=== PATIENT | female | born 1955 | race Caucasian/White ===

== ENCOUNTER 2017-08-08 07:30 | Inpatient (IN) | payer OTHER ==
[~2017-08-08 07:30] MED LIST: Bisacodyl 5 MG Tab PO PRN; Cyclobenzaprine 10 MG Tab PO PRN; Docusate Sodium 100 MG Cap PO PRN; Lidocaine 1%/Sod Bicarbonate in NS 8.4% 1 ML Syringe IV PRN; Magnesium Hydroxide 400 MG/5 ML Susp 30 ML Cup PO PRN; Morphine 2 MG/ML Syringe IVPUSH PRN; Naloxone 0.4 MG/ML SDV IVPUSH PRN; Ondansetron 4 MG/2 ML SDV IVPUSH PRN; Sennosides 8.6 MG Tab PO PRN; Sodium Chloride 0.9% 10 ML Syringe FLUSH PRN
[2017-08-08] MEDS: Lactated Ringers 1,000 ML IV SCH ×2 (10:12→15:19)
--- NOTE | 2017-08-08 10:12 | PCM.PREANE ---
Preanesthetic Assessment - Anesthesia/Transfusion/Family Hx Anesthesia History: Prior Anesthesia Reaction Type of Anesthesia Reaction: Excessive Nausea/Vomiting Family History of Anesthesia Reaction: No Transfusion History: No Prior Transfusion(s) Intubation History: Unknown - Review of Systems General: No Symptoms Pulmonary: No Symptoms (History of ROBERTO with cpap use noted at night.) Cardiovascular: No Symptoms (History of HTN) Gastrointestinal: No Symptoms, Constipation Neurological: No Symptoms Other: Reports: None - Physical Assessment NPO Status Date: 08/08/17 NPO Status Time: 00:00 Pulse: 66 O2 Sat by Pulse Oximetry: 96 Respiratory Rate: 16 Blood Pressure: 143/71 Temperature: 36.9 C Height: 1.6 m Weight: 89.358 kg ASA Class: 2 Mental Status: Alert & Oriented x3 Airway Class: Mallampati = 2 Dentition: Reports: Normal Dentition, Caries Thyro-Mental Finger Breadths: 3 Mouth Opening Finger Breadths: 3 ROM/Head Extension: Full Lungs: Clear to Auscultation, Normal Respiratory Effort Cardiovascular: Regular Rate, Regular Rhythm, No Murmurs - Lab Values: Laboratory Last Values MRSA (PCR) Negative 07/26/17 09:43 Lab values reviewed and noted and within acceptable ranges to proceed with scheduled procedure. - Imaging/EKG Impressions: EKG: NSR, borderline left axis deviation, probable anteroseptal infarct, old. CXR: unremarkable. - Allergies Allergies/Adverse Reactions: Allergies Allergy/AdvReac Type Severity Reaction Status Date / Time latex Allergy Rash Verified 08/08/17 10:38 - Anesthesia Plan Pre-Op Medication Ordered: None - Acknowledgements Anesthesia Type Planned: Spinal Pt an Appropriate Candidate for the Planned Anesthesia: Yes Alternatives and Risks of Anesthesia Discussed w Pt/Guardian: Yes Pt/Guardian Understands and Agrees with Anesthesia Plan: Yes PreAnesthesia Questionnaire HEENT History: Reports: Impaired Vision, Other (See Below) Other HEENT History: glasses Cardiovascular History: Reports: High Cholesterol, Hypertension Respiratory History: Reports: Sleep Apnea Gastrointestinal History: Reports: None Genitourinary History: Reports: Other (See Below) Other Genitourinary History: overactive bladder 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 Musculoskeletal History: Reports: Osteoarthritis, Other (See Below) Other Musculoskeletal History: padron's cyst right knee Neurological History: Reports: None Psychiatric History: Reports: Anxiety, Depression Endocrine/Metabolic History: Reports: None Hematologic History: Reports: None Immunologic History: Reports: None Oncologic (Cancer) History: Reports: None Dermatologic History: Reports: None - Past Surgical History Head Surgeries/Procedures: Reports: None Cardiovascular Surgical History: Reports: None Respiratory Surgical History: Reports: None GI Surgical History: Reports: None Female Surgical History: Reports: Hysterectomy, Tubal Ligation Male Surgical History: Reports: None Endocrine Surgical History: Reports: None Neurological Surgical History: Reports: None Musculoskeletal Surgical History: Reports: Carpal Tunnel Oncologic Surgical History: Reports: None Dermatological Surgical History: Reports: None - SUBSTANCE USE Smoking Status *Q: Never Smoker Recreational Drug Use History: No - HOME MEDS Home Medications: Home Meds Biotin 5 mg PO BID 08/05/17 [History] Furosemide [Lasix] 20 mg PO BID 08/05/17 [History] L Acidophil/B Lactis/B Longum [Florajen3] 460 mg PO DAILY 08/05/17 [History] Lisinopril 5 mg PO DAILY 08/05/17 [History] Meloxicam [Mobic] 7.5 mg PO DAILY 08/05/17 [History] Replenex 1 tab PO BID 08/05/17 [History] - CURRENT (IN HOUSE) MEDS Current Meds: Current Medications Aspirin (Ecotrin) 325 mg PO BID ALBINA Bisacodyl (Dulcolax) 5 mg PO DAILY PRN PRN Reason: Constipation Morphine Sulfate 8 mg/Epinephrine HCl 0.3 mg/Cefuroxime Sodium 750 mg/Ketorolac Tromethamine 30 mg/Sodium Chloride 27.9 ml 0 mg .XX ONETIME ONE Stop: 08/08/17 11:31 Cyclobenzaprine HCl (Flexeril) 10 mg PO TID PRN PRN Reason: Spasms Docusate Sodium (Colace) 100 mg PO BID PRN PRN Reason: Constipation Famotidine (Pepcid) 20 mg PO Q12H ALBINA Lactated Ringer's (Ringers, Lactated) 1,000 mls @ 125 mls/hr IV ASDIRECTED ALBINA Cefazolin Sodium/Dextrose 2 gm (/ Premix) 50 mls @ 100 mls/hr IV Q8H ALBINA Stop: 08/08/17 23:44 Lidocaine/Sodium Bicarbonate (Buffered Lidocaine 1% In Ns 8.4%) 0.25 ml IV ONETIME PRN PRN Reason: Prior to IV Start Stop: 08/08/17 18:00 Magnesium Hydroxide (Milk Of Magnesia) 30 ml PO BID PRN PRN Reason: Constipation Morphine Sulfate (Morphine) 2 mg IVPUSH Q2H PRN PRN Reason: Breakthrough Pain Naloxone HCl (Narcan) 0.1 mg IVPUSH Q5M PRN PRN Reason: Oversedation Ondansetron HCl (Zofran) 4 mg IVPUSH Q6H PRN PRN Reason: Nausea/Vomiting Oxycodone/Acetaminophen (Percocet 325-5 Mg) 1 - 2 tab PO Q4H PRN PRN Reason: Pain Senna (Senna) 8.6 mg PO BID PRN PRN Reason: Constipation Sodium Chloride (Saline Flush) 10 ml FLUSH ASDIRECTED PRN PRN Reason: Keep Vein Open Discontinued Medications Bupivacaine HCl (Marcaine 0.25%) Confirm Administered Dose 30 ml .ROUTE .STK- MED ONE Stop: 08/08/17 09:44 Cefazolin Sodium (Ancef) Confirm Administered Dose 2 gm .ROUTE .STK-MED ONE Stop: 08/08/17 09:44 Iodine (Iodine 2% Mild Tincture) Confirm Administered Dose 30 ml .ROUTE .STK- MED ONE Stop: 08/08/17 09:44 Tranexamic Acid (Cyklokapron) Confirm Administered Dose 1,000 mg .ROUTE .STK- MED ONE Stop: 08/08/17 09:44 Vancomycin HCl (Vancomycin) Confirm Administered Dose 1 gm .ROUTE .STK-MED ONE Stop: 08/08/17 09:44
[2017-08-08] MEDS ORDERED: Scopolamine 1.5 MG Transdermal Patch TRDERM ONE (10:15)
[2017-08-08] MEDS ORDERED: Phenylephrine 1% 10 MG/ML SDV ONE ×2 (10:33→11:36)
[2017-08-08] MEDS ORDERED: Lactated Ringers 1,000 ML ONE ×3 (10:59→12:09)
[2017-08-08] MEDS ORDERED: Midazolam 1 MG/ML 2 ML SDV ONE (11:23)
[2017-08-08] MEDS ORDERED: Lidocaine 1% 8 ML ONE (11:24)
[2017-08-08] MEDS ORDERED: Ondansetron 4 MG/2 ML SDV ONE (11:24)
[2017-08-08] MEDS ORDERED: fentaNYL 100 MCG/2 ML SDV ONE (11:24)
[2017-08-08] MEDS ORDERED: Dexamethasone 4 MG/ML 5 ML MDV ONE (11:24)
[2017-08-08] MEDS ORDERED: diphenhydrAMINE 50 MG/ML SDV ONE (11:24)
[2017-08-08] MEDS ORDERED: Propofol 200 MG/20 ML SDV ONE ×3 (11:24→13:09)
[2017-08-08] MEDS ORDERED: Morphine PF 10 MG/10 ML SDV ONE (11:31)
[2017-08-08] MEDS ORDERED: Ketamine 500 mg/10 ML MDV ONE (11:34)
[2017-08-08] MEDS ORDERED: ePHEDrine 50 MG/ML SDV ONE (11:36)
[2017-08-08] MEDS ORDERED: fentaNYL 100 MCG/2 ML SDV IVPUSH PRN (12:07)
[2017-08-08] MEDS ORDERED: Midazolam 1 MG/ML 2 ML SDV IVPUSH PRN (12:07)
[2017-08-08] MEDS ORDERED: Ondansetron 4 MG/2 ML SDV IVPUSH PRN (12:07)
[2017-08-08] MEDS ORDERED: ePHEDrine 50 MG/ML SDV IVPUSH PRN (12:07)
[2017-08-08] MEDS ORDERED: Phenylephrine 1 MG in Sodium Chloride 0.9% 10 ML IV SCH (12:15)
[2017-08-08] MEDS: Bupivacaine 0.25% 30 ML SDV ONE ×2 (12:27→13:29)
[2017-08-08] MEDS: ceFAZolin 1 GM Vial ONE ×2 (12:28→13:23)
[2017-08-08] MEDS: Iodine/Sodium Iodide 2% Tincture 30 ML Bottle ONE ×2 (12:29→13:21)
[2017-08-08] MEDS: Morphine 8 MG, EPINEPHrine 0.3 MG, Cefuroxime 750 MG, Ketorolac 30 MG, Sodium Chloride ... ONE ×15 (12:30→20:17)
[2017-08-08] MEDS: Vancomycin 1 GM SDV ONE ×2 (12:31→13:30)
[2017-08-08] MEDS ORDERED: ceFAZolin 1 GM Vial ONE (13:30)
--- NOTE | 2017-08-08 14:11 | PCM.POSTAN ---
POST ANESTHESIA ASSESSMENT - MENTAL STATUS Mental Status: Somnolent - VITAL SIGNS Pulse Rate: 62 SaO2: 91 Resp Rate: 14 Blood Pressure: 90/51 Temperature: 36.0 C - RESPIRATORY Respiratory Status: Respiratory Rate WNL, Airway Patent, O2 Saturation Stable - CARDIOVASCULAR CV Status: Pulse Rate WNL, Blood Pressure Stable, Low Blood Pressure - GASTROINTESTINAL GI Status: No Symptoms - PAIN Pain Score: 0 - POST OP HYDRATION Hydration Status: Adequate & Stable
--- NOTE | 2017-08-08 15:40 | CR ---
Right hip: AP and lateral views of the right hip were obtained as well as AP view of the pelvis. Right hip prosthesis is seen. Components are aligned. Mild joint space narrowing seen within the left hip. Underlying bony structures are intact. Soft tissue air noted around the right hip compatible with the procedure. Impression: 1. Mild joint space narrowing within the left hip. 2. Satisfactory postoperative radiographic appearance of recently placed right hip prosthesis. Diagnostic code #2
[2017-08-08] MEDS: ceFAZolin 2 GM in Premix Bag 1 BAG IV SCH (18:51)
--- NOTE | 2017-08-08 20:01 | PCM.CONS ---
H&P History of Present Illness - General Date of Service: 08/08/17 Admit Problem/Dx: Admission Diagnosis/Problem Admission Diagnosis/Problem Osteoarthritis of hip Source of Information: Patient, Old Records, Provider, RN, Other (surgical notes ) History Limitations: Reports: No Limitations - History of Present Illness Initial Comments - Free Text/Narative: Natalia Oliveira is a 62 yo female patient of Dr. Mcduffie who is post-operative day 0 of right total hip arthroplasty. Hospital medicine was consulted for post- operative medical care. At this time she is resting comfortably. Pain is controlled. she denies any chest pain, shortness of breath, palpitations, nausea , or vomiting. She carries a history of: HLD, HTN, ROBERTO, overactive bladder, osteoarthritis, anxiety,and depression. She was never a smoker She is a full code. Her primary care provider is Dr. Chu at [facility] in [place] . Right Hip Pain Score (Numeric/FACES): 1 - Related Data Allergies/Adverse Reactions: Allergies Allergy/AdvReac Type Severity Reaction Status Date / Time latex Allergy Rash Verified 08/08/17 10:38 Home Medications: Home Meds Biotin 5 mg PO BID 08/05/17 [History] Furosemide [Lasix] 20 mg PO BID 08/05/17 [History] L Acidophil/B Lactis/B Longum [Florajen3] 460 mg PO DAILY 08/05/17 [History] Lisinopril 5 mg PO DAILY 08/05/17 [History] Meloxicam [Mobic] 7.5 mg PO DAILY 08/05/17 [History] Replenex 1 tab PO BID 08/05/17 [History] Past Medical History HEENT History: Reports: Impaired Vision, Other (See Below) Other HEENT History: glasses Cardiovascular History: Reports: Hypertension Respiratory History: Reports: Sleep Apnea Gastrointestinal History: Reports: None Genitourinary History: Reports: Other (See Below) Other Genitourinary History: overactive bladder 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 noted a couple of days ago a pea sized lump on left breast at approx. 10 o'clock position, is moveable and nontender. Will note further. Musculoskeletal History: Reports: Osteoarthritis, Other (See Below) Other Musculoskeletal History: padron's cyst right knee Neurological History: Reports: Concussion Other Neuro History: states had a concussion 4-5 years ago Psychiatric History: Reports: Anxiety, Depression Endocrine/Metabolic History: Reports: None Hematologic History: Reports: None Immunologic History: Reports: None Oncologic (Cancer) History: Reports: None Dermatologic History: Reports: None - Past Surgical History Head Surgeries/Procedures: Reports: None Cardiovascular Surgical History: Reports: None Respiratory Surgical History: Reports: None GI Surgical History: Reports: None Female Surgical History: Reports: Hysterectomy, Tubal Ligation Endocrine Surgical History: Reports: None Neurological Surgical History: Reports: None Musculoskeletal Surgical History: Reports: Carpal Tunnel, Other (See Below) Other Musculoskeletal Surgeries/Procedures:: and trigger finger on each thumb Oncologic Surgical History: Reports: None Dermatological Surgical History: Reports: None Social & Family History - Family History Cardiac: Reports: Heart Failure : Reports: UTI, Recurrent OBGYN: Reports: None Musculoskeletal: Reports: Arthritis Neurological: Reports: Dementia, Parkinson's Endocrine/Metabolic: Reports: None Oncologic: Reports: Breast - Tobacco Use Smoking Status *Q: Never Smoker Second Hand Smoke Exposure: Yes - Caffeine Use Caffeine Use: Reports: Coffee Caffeine Use Comment: 4 cups of coffee today - Recreational Drug Use Recreational Drug Use: No Drug Use in Last 12 Months: No H&P Review of Systems - Review of Systems: Review Of Systems: See Below General: Reports: No Symptoms HEENT: Reports: No Symptoms Pulmonary: Reports: No Symptoms Cardiovascular: Reports: No Symptoms Gastrointestinal: Reports: No Symptoms Genitourinary: Reports: No Symptoms Musculoskeletal: Reports: Joint Pain (right hip ). Denies: Neck Pain, Shoulder Pain, Arm Pain, Back Pain, Hand Pain, Leg Pain, Foot Pain, Joint Swelling, Muscle Pain, Muscle Stiffness Skin: Reports: No Symptoms Psychiatric: Reports: No Symptoms Neurological: Reports: No Symptoms Hematologic/Lymphatic: Reports: No Symptoms Immunologic: Reports: No Symptoms Review of Systems Comment:: Patient reports pain is very well controlled. She has no concerns. Exam - Exam Exam: See Below - Vital Signs Vital Signs: Last Vital Signs Temp 96.6 F 08/08/17 16:21 Pulse 84 08/08/17 19:17 Resp 14 08/08/17 16:21 BP 107/53 L 08/08/17 19:17 Pulse Ox 99 08/08/17 19:17 Weight: 197 lb - Exam Quality Assessment: Supplemental Oxygen, Urinary Catheter, DVT Prophylaxis General: Alert, Oriented, Cooperative HEENT: Conjunctiva Clear, EACs Clear, EOMI, Hearing Intact, Mucosa Moist & [place] , Nares Patent, Normal Nasal Septum, Posterior Pharynx Clear, Pupils Equal, Pupils Reactive Neck: Supple, Trachea Midline. No: JVD Lungs: Clear to Auscultation, Normal Respiratory Effort Cardiovascular: Regular Rate, Regular Rhythm GI/Abdominal Exam: Normal Bowel Sounds, Soft, Non-Tender, No Organomegaly, No Distention, No Abnormal Bruit, No Mass, Pelvis Stable (Female) Exam: Deferred Rectal (Female) Exam: Deferred Back Exam: Normal Inspection, Full Range of Motion Extremities: No Pedal Edema, Normal Capillary Refill, Other (Right leg has Edin bandage in place. Bandage is intact and dry.) Peripheral Pulses: 2+: Radial (L), Radial (R), Posterior Tibial (L), Posterior Tibial (R), Dorsalis Pedis (L), Dorsalis Pedis (R) Skin: Warm, Dry, Intact Neurological: Cranial Nerves Intact (grossly) Neuro Extensive - Mental Status: Alert, Oriented x3, Normal Mood/Affect, Normal Cognition, Memory Intact Neuro Extensive - Motor, Sensory, Reflexes: CN II-XII Intact (grossly) Psychiatric: Alert, Normal Affect, Normal Mood Physical Exam Comments:: Vital signs of been stable. No concerns. Patient does have a history of sleep apnea and she brought her CPAP machine. She was instructed to wear it tonight. - Patient Data Lab Results Last 24 hrs: Laboratory Results - last 24 hr 08/08/17 Range/Units 09:45 Blood Type O POSITIVE Gel Antibody Screen Negative Consult PN Assessment/Plan POD#: 0 Procedures: Procedures BREATHING CAPACITY TEST (06/03/17) CO/MEMBANE DIFFUSE CAPACITY (06/03/17) DRAIN/INJ JOINT/BURSA W/O US (03/18/17) DXA BONE DENSITY AXIAL (08/02/17) POLYSOM 6/> YRS 4/> TOBI (03/10/17) POLYSOM 6/>YRS CPAP 4/> PARM (06/08/17) (1) S/P total hip arthroplasty SNOMED Code(s): 972562514941 Code(s): Z96.649 - PRESENCE OF UNSPECIFIED ARTIFICIAL HIP JOINT Priority: High Current Visit: Yes Qualifiers: Laterality: right Qualified Code(s): Z96.641 - Presence of right artificial hip joint (2) Osteoarthritis SNOMED Code(s): 870104786 Code(s): M19.90 - UNSPECIFIED OSTEOARTHRITIS, UNSPECIFIED SITE Priority: High Current Visit: Yes Qualifiers: Osteoarthritis location: hip Osteoarthritis type: primary Laterality: right Qualified Code(s): M16.11 - Unilateral primary osteoarthritis, right hip (3) HLD (hyperlipidemia) SNOMED Code(s): 57760886 Code(s): E78.5 - HYPERLIPIDEMIA, UNSPECIFIED Priority: Low Current Visit : No Qualifiers: Hyperlipidemia type: unspecified Qualified Code(s): E78.5 - Hyperlipidemia , unspecified (4) HTN (hypertension) SNOMED Code(s): 40327199 Code(s): I10 - ESSENTIAL (PRIMARY) HYPERTENSION Priority: Low Current Visit: Yes Qualifiers: Hypertension type: unspecified Qualified Code(s): I10 - Essential (primary ) hypertension (5) Sleep apnea SNOMED Code(s): 29588277 Code(s): G47.30 - SLEEP APNEA, UNSPECIFIED Priority: Medium Current Visit : Yes Qualifiers: Sleep apnea type: unspecified type Qualified Code(s): G47.30 - Sleep apnea , unspecified (6) Overactive bladder SNOMED Code(s): 426325134 Code(s): N32.81 - OVERACTIVE BLADDER Priority: Low Current Visit: No (7) Anxiety SNOMED Code(s): 36105973 Code(s): F41.9 - ANXIETY DISORDER, UNSPECIFIED Priority: Low Current Visit: No (8) Depression SNOMED Code(s): 65417213 Code(s): F32.9 - MAJOR DEPRESSIVE DISORDER, SINGLE EPISODE, UNSPECIFIED Priority: Low Current Visit: No Qualifiers: Depression Type: unspecified Qualified Code(s): F32.9 - Major depressive disorder, single episode, unspecified Problem List Initiated/Reviewed/Updated: Yes Plan: I/P: Acute: S/P Right total hip arthroplasty - postoperative day 0 -DVT prophylaxis and pain management per primary care team -PT/OT -IS/RT -Monitor oxygen saturation -Titrate oxygen as needed -Vital signs stable -50% weight bearing per Brigitte Laumb, PA-C. Osteoarthritis of right hip -Pain management per primary care team Chronic: HLD HTN - stable Sleep apnea - Brought CPAP to wear Overactive bladder Anxiety - stable Depression - stable Plan: SW/CM for discharge planning GI prophylaxis Home medications as indicated Other orders as listed above Routine AM labs She is a full code. Her PCP is Dr. Chu at [facility] here in [place]. Thank you for allowing us to participate in the care of this patient!! Requesting Provider: Dr. Mcduffie Date Consult Requested: 08/08/17 Reason for Consult: Post-operative medical managment Patient History Reviewed: Yes Admission H&P Reviewed: Yes
[2017-08-08] MEDS: Famotidine 20 MG Tab PO SCH (20:59)
[2017-08-08] MEDS ORDERED: Furosemide 20 MG Tab PO SCH (21:00)
[2017-08-08] MEDS: Acetaminophen/oxyCODONE 325-5 MG Tab PO PRN (21:00)
[2017-08-09] MEDS: ceFAZolin 2 GM in Premix Bag 1 BAG IV SCH ×2 (03:35→11:08)
[2017-08-09] MEDS: Acetaminophen/oxyCODONE 325-5 MG Tab PO PRN ×3 (06:54→16:19)
[2017-08-09] MEDS: Furosemide 20 MG Tab PO SCH ×2 (06:54→15:53)
[2017-08-09] MEDS ORDERED: Aspirin 325 MG Tab.EC PO SCH (09:00)
[2017-08-09] MEDS ORDERED: Lisinopril 5 MG Tab PO SCH (09:00)
[2017-08-09] MEDS ORDERED: Saccharomyces Boulardii (Probiotic) 250 MG Cap PO SCH ×2 (09:00→09:30)
[2017-08-09] MEDS: Famotidine 20 MG Tab PO SCH (09:26)
--- NOTE | 2017-08-09 10:27 | PCM48HPAN ---
Post Anesthesia Note - EVALUATION WITHIN 48HRS OF ANESTHETIC Vital Signs in Normal Range: Yes Patient Participated in Evaluation: Yes Respiratory Function Stable: Yes Airway Patent: Yes Cardiovascular Function Stable: Yes Hydration Status Stable: Yes Pain Control Satisfactory: Yes Nausea and Vomiting Control Satisfactory: Yes Mental Status Recovered: Yes
--- NOTE | 2017-08-09 11:01 | PCM.CONSN ---
- General Info Date of Service: 08/09/17 Admission Dx/Problem (Free Text): Admission Diagnosis/Problem Admission Diagnosis/Problem Osteoarthritis of hip POD #[address] Mcduffie Patient is 50% wt bearing status due to osteoporosis. Working with PT, doing well. No nausea, tolerating meals. Voiding. VSS. Hgb 9.8. Other labs stable. Functional Status: Reports: Pain Controlled, Tolerating Diet, Ambulating, Urinating, Incentive Spirometry. Denies: New Symptoms - Review of Systems General: Reports: No Symptoms HEENT: Reports: No Symptoms Pulmonary: Reports: No Symptoms Cardiovascular: Reports: No Symptoms Gastrointestinal: Reports: No Symptoms Genitourinary: Reports: No Symptoms Musculoskeletal: Reports: Leg Pain Skin: Reports: No Symptoms Neurological: Reports: No Symptoms Psychiatric: Reports: No Symptoms - Patient Data Vitals - Most Recent: Last Vital Signs Temp 98.6 F 08/09/17 08:22 Pulse 62 08/09/17 08:22 Resp 19 08/09/17 08:22 BP 118/53 L 08/09/17 09:25 Pulse Ox 88 L 08/09/17 10:24 Weight - Most Recent: 197 lb 0.012 oz I&O - Last 24 Hours: Intake & Output 08/08/17 08/09/17 08/09/17 22:59 06:59 14:59 Intake Total 570 850 Output Total 75 1100 Balance 495 -250 Lab Results Last 24 Hours: Laboratory Results - last 24 hr 08/09/17 08/09/17 Range/Units 06:25 06:25 WBC 8.04 (3.98-10.04) K/mm3 RBC 3.56 L (3.98-5.22) M/mm3 Hgb 9.8 L (11.2-15.7) gm/L Hct 31.2 L (34.1-44.9) % MCV 87.6 (79.4-94.8) fl MCH 27.5 (25.6-32.2) pg MCHC 31.4 L (32.2-35.5) g/dl RDW Std Deviation 44.1 (36.4-46.3) fL Plt Count 251 (182-369) K/mm3 MPV 8.5 L (9.4-12.3) fl Sodium 145 (136-145) mEq/L Potassium 3.9 (3.5-5.1) mEq/L Chloride 108 H (98-107) mEq/L Carbon Dioxide 29 (21-32) mEq/L Anion Gap 11.9 (5-15) BUN 17 (7-18) mg/dL Creatinine 0.7 (0.55-1.02) mg/dL Est Cr Clr Drug Dosing 68.93 mL/min Estimated GFR (MDRD) > 60 (>60) mL/min BUN/Creatinine Ratio 24.3 H (14-18) Glucose 106 (80-115) mg/dL Calcium 8.7 (8.5-10.1) mg/dL Total Bilirubin 0.3 (0.2-1.0) mg/dL AST 18 (15-37) U/L ALT 18 (14-59) U/L Alkaline Phosphatase 68 (46-116) U/L Total Protein 5.6 L (6.4-8.2) g/dl Albumin 2.6 L (3.4-5.0) g/dl Globulin 3.0 gm/dL Albumin/Globulin Ratio 0.9 L (1-2) Med Orders - Current: Current Medications Aspirin (Ecotrin) 325 mg PO BID [facility] Last Admin: 08/09/17 09:25 Dose: 325 mg Bisacodyl (Dulcolax) 5 mg PO DAILY PRN PRN Reason: Constipation Cyclobenzaprine HCl (Flexeril) 10 mg PO TID PRN PRN Reason: Spasms Last Admin: 08/09/17 06:54 Dose: 10 mg Docusate Sodium (Colace) 100 mg PO BID PRN PRN Reason: Constipation Famotidine (Pepcid) 20 mg PO Q12H [facility] Last Admin: 08/09/17 09:26 Dose: 20 mg Furosemide (Lasix) 20 mg PO BIDDIURETIC [facility] Last Admin: 08/09/17 06:54 Dose: 20 mg Cefazolin Sodium/Dextrose 2 gm (/ Premix) 50 mls @ 100 mls/hr IV Q8H [facility] Stop: 08/09/17 11:29 Last Admin: 08/09/17 03:35 Dose: 100 mls/hr Lisinopril (Prinivil) 5 mg PO DAILY [facility] Last Admin: 08/09/17 09:25 Dose: 5 mg Magnesium Hydroxide (Milk Of Magnesia) 30 ml PO BID PRN PRN Reason: Constipation Miscellaneous Information (Remove Patch) 0 ea TRDERM ONETIME ONE Stop: 08/11/17 10:01 Morphine Sulfate (Morphine) 2 mg IVPUSH Q2H PRN PRN Reason: Breakthrough Pain Naloxone HCl (Narcan) 0.1 mg IVPUSH Q5M PRN PRN Reason: Oversedation Ondansetron HCl (Zofran) 4 mg IVPUSH Q6H PRN PRN Reason: Nausea/Vomiting Oxycodone/Acetaminophen (Percocet 325-5 Mg) 1 - 2 tab PO Q4H PRN PRN Reason: Pain Last Admin: 08/09/17 06:54 Dose: 2 tab Biotin 5 Mg 0 each PO BID [facility] Saccharomyces Boulardii (Florastor) 250 mg PO DAILY [facility] Last Admin: 08/09/17 09:27 Dose: 250 mg Senna (Senna) 8.6 mg PO BID PRN PRN Reason: Constipation Sodium Chloride (Saline Flush) 10 ml FLUSH ASDIRECTED PRN PRN Reason: Keep Vein Open Discontinued Medications Bupivacaine HCl (Marcaine 0.25%) Confirm Administered Dose 30 ml .ROUTE .STK- MED ONE Stop: 08/08/17 09:44 Last Admin: 08/08/17 13:29 Dose: 30 ml Cefazolin Sodium (Ancef) Confirm Administered Dose 2 gm .ROUTE .STK-MED ONE Stop: 08/08/17 09:44 Last Admin: 08/08/17 13:23 Dose: 2 gm Cefazolin Sodium (Ancef) Confirm Administered Dose 2 gm .ROUTE .STK-MED ONE Stop: 08/08/17 13:31 Morphine Sulfate 8 mg/Epinephrine HCl 0.3 mg/Cefuroxime Sodium 750 mg/Ketorolac Tromethamine 30 mg/Sodium Chloride 27.9 ml 0 mg .XX ONETIME ONE Stop: 08/08/17 11:31 Last Admin: 08/08/17 20:17 Dose: Not Given Dexamethasone (Dexamethasone) Confirm Administered Dose 20 mg .ROUTE .STK-MED ONE Stop: 08/08/17 11:25 Diphenhydramine HCl (Benadryl) Confirm Administered Dose 50 mg .ROUTE .STK-MED ONE Stop: 08/08/17 11:25 Ephedrine Sulfate (Ephedrine Sulfate) Confirm Administered Dose 50 mg .ROUTE .STK-MED ONE Stop: 08/08/17 11:37 Ephedrine Sulfate (Ephedrine Sulfate) 5 mg IVPUSH ASDIRECTED PRN PRN Reason: Hypotension Stop: 08/08/17 14:30 Fentanyl (Sublimaze) Confirm Administered Dose 100 mcg .ROUTE .STK-MED ONE Stop: 08/08/17 11:25 Fentanyl (Sublimaze) 50 mcg IVPUSH Q5M PRN PRN Reason: Pain Stop: 08/08/17 14:30 Furosemide (Lasix) 20 mg PO BID [facility] Last Admin: 08/08/17 20:59 Dose: 20 mg Glycopyrrolate () Confirm Administered Dose 1 mg .ROUTE .STK-MED ONE Stop: 08/08/17 12:34 Lactated Ringer's (Ringers, Lactated) 1,000 mls @ 125 mls/hr IV ASDIRECTED [facility] Last Admin: 08/08/17 15:19 Dose: 125 mls/hr Lactated Ringer's (Ringers, Lactated) Confirm Administered Dose 1,000 mls @ as directed .ROUTE .ST-MED ONE Stop: 08/08/17 11:00 Lidocaine HCl (Xylocaine-Mpf 1%) Confirm Administered Dose 8 mls @ as directed .ROUTE .ST-MED ONE Stop: 08/08/17 11:25 Lactated Ringer's (Ringers, Lactated) Confirm Administered Dose 1,000 mls @ as directed .ROUTE .ST-MED ONE Stop: 08/08/17 11:56 Lactated Ringer's (Ringers, Lactated) Confirm Administered Dose 1,000 mls @ as directed .ROUTE .ST-MED ONE Stop: 08/08/17 12:10 Phenylephrine HCl 1 mg/ Sodium (Chloride) 10.1 mls @ 1 mls/sec IV TITRATE [facility] PRN Reason: Protocol Stop: 08/08/17 14:30 Iodine (Iodine 2% Mild Tincture) Confirm Administered Dose 30 ml .ROUTE .STK- MED ONE Stop: 08/08/17 09:44 Last Admin: 08/08/17 13:21 Dose: 18 ml Ketamine HCl (Ketalar) Confirm Administered Dose 500 mg .ROUTE .STK-MED ONE Stop: 08/08/17 11:35 Lidocaine/Sodium Bicarbonate (Buffered Lidocaine 1% In Ns 8.4%) 0.25 ml IV ONETIME PRN PRN Reason: Prior to IV Start Stop: 08/08/17 18:00 Last Admin: 08/08/17 10:12 Dose: 0.25 ml Midazolam HCl (Versed 1 Mg/Ml) Confirm Administered Dose 2 mg .ROUTE .STK-MED ONE Stop: 08/08/17 11:24 Midazolam HCl (Versed 1 Mg/Ml) 2 mg IVPUSH ONETIME PRN PRN Reason: Sedation Stop: 08/08/17 14:30 Morphine Sulfate (Duramorph Pf) Confirm Administered Dose 10 mg .ROUTE .STK-MED ONE Stop: 08/08/17 11:32 Ondansetron HCl (Zofran) Confirm Administered Dose 4 mg .ROUTE .STK-MED ONE Stop: 08/08/17 11:25 Ondansetron HCl (Zofran) 4 mg IVPUSH ONETIME PRN PRN Reason: Nausea/Vomiting Stop: 08/08/17 14:30 Phenylephrine HCl (Peterson-Synephrine) Confirm Administered Dose 10 mg .ROUTE .STK- MED ONE Stop: 08/08/17 10:34 Phenylephrine HCl (Peterson-Synephrine) Confirm Administered Dose 10 mg .ROUTE .STK- MED ONE Stop: 08/08/17 11:37 Propofol (Diprivan 20 Ml) Confirm Administered Dose 400 mg .ROUTE .STK-MED ONE Stop: 08/08/17 11:25 Propofol (Diprivan 20 Ml) Confirm Administered Dose 200 mg .ROUTE .STK-MED ONE Stop: 08/08/17 13:10 Propofol (Diprivan 20 Ml) Confirm Administered Dose 200 mg .ROUTE .STK-MED ONE Stop: 08/08/17 13:10 Saccharomyces Boulardii (Florastor) 2,510 mg PO DAILY [facility] Scopolamine (Transderm-Scop) 1.5 mg TRDERM ONETIME ONE Stop: 08/08/17 10:16 Last Admin: 08/08/17 10:13 Dose: 1.5 mg Tranexamic Acid (Cyklokapron) Confirm Administered Dose 1,000 mg .ROUTE .STK- MED ONE Stop: 08/08/17 09:44 Last Admin: 08/08/17 13:30 Dose: 1,000 mg Vancomycin HCl (Vancomycin) Confirm Administered Dose 1 gm .ROUTE .STK-MED ONE Stop: 08/08/17 09:44 Last Admin: 08/08/17 13:30 Dose: 1 gm - Exam Quality Assessment: DVT Prophylaxis General: Alert, Oriented, Cooperative, No Acute Distress HEENT: Pupils Equal, EOMI, Mucous Membr. Moist/[place] Neck: Supple Lungs: Clear to Auscultation, Normal Respiratory Effort, Decreased Breath Sounds (bases) Cardiovascular: Regular Rate, Regular Rhythm GI/Abdominal Exam: Normal Bowel Sounds, Soft, Non-Tender (Female) Exam: Deferred Extremities: Normal Capillary Refill, Other (Teds/SCD's bilat) Peripheral Pulses: 2+: Dorsalis Pedis (L), Dorsalis Pedis (R) Neurological: No New Focal Deficit Psy/Mental Status: Alert, Normal Affect, Normal Mood Consult PN Assessment/Plan POD#: 1 Procedures: Procedures BREATHING CAPACITY TEST (06/03/17) CO/[place] DIFFUSE CAPACITY (06/03/17) DRAIN/INJ JOINT/BURSA W/O US (03/18/17) DXA BONE DENSITY AXIAL (08/02/17) POLYSOM 6/> YRS 4/> TOBI (03/10/17) POLYSOM 6/>YRS CPAP 4/> PARM (06/08/17) (1) S/P total hip arthroplasty SNOMED Code(s): 380597519960 Code(s): Z96.649 - PRESENCE OF UNSPECIFIED ARTIFICIAL HIP JOINT Priority: High Current Visit: Yes Qualifiers: Laterality: right Qualified Code(s): Z96.641 - Presence of right artificial hip joint (2) Osteoarthritis SNOMED Code(s): 707922458 Code(s): M19.90 - UNSPECIFIED OSTEOARTHRITIS, UNSPECIFIED SITE Priority: High Current Visit: Yes Qualifiers: Osteoarthritis location: hip Osteoarthritis type: primary Laterality: right Qualified Code(s): M16.11 - Unilateral primary osteoarthritis, right hip (3) HTN (hypertension) SNOMED Code(s): 92199768 Code(s): I10 - ESSENTIAL (PRIMARY) HYPERTENSION Priority: Low Current Visit: Yes Qualifiers: Hypertension type: unspecified Qualified Code(s): I10 - Essential (primary ) hypertension (4) Sleep apnea SNOMED Code(s): 82981053 Code(s): G47.30 - SLEEP APNEA, UNSPECIFIED Priority: Medium Current Visit : Yes Qualifiers: Sleep apnea type: unspecified type Qualified Code(s): G47.30 - Sleep apnea , unspecified (5) HLD (hyperlipidemia) SNOMED Code(s): 48216127 Code(s): E78.5 - HYPERLIPIDEMIA, UNSPECIFIED Priority: Low Current Visit : No Qualifiers: Hyperlipidemia type: unspecified Qualified Code(s): E78.5 - Hyperlipidemia , unspecified (6) Overactive bladder SNOMED Code(s): 291936645 Code(s): N32.81 - OVERACTIVE BLADDER Priority: Low Current Visit: No (7) Anxiety SNOMED Code(s): 87764632 Code(s): F41.9 - ANXIETY DISORDER, UNSPECIFIED Priority: Low Current Visit: No (8) Depression SNOMED Code(s): 12219577 Code(s): F32.9 - MAJOR DEPRESSIVE DISORDER, SINGLE EPISODE, UNSPECIFIED Priority: Low Current Visit: No Qualifiers: Depression Type: unspecified Qualified Code(s): F32.9 - Major depressive disorder, single episode, unspecified Problem List Initiated/Reviewed/Updated: Yes Plan: I/P: Acute: S/P Right total hip arthroplasty - postoperative day 1 -DVT prophylaxis and pain management per primary care team -PT/OT -IS/RT -50% weight bearing per Brigitte Moscoso PA-C; d/t osteoporosis -Will need tx for osteoporosis as outpatient when DC'd as DEXA report reviewed with Antonio Moscoso- Ortho office rec'd this report yesterday afternoon - shows osteoporosis -Hgb 9.8, other labs stable Osteoarthritis of right hip--as above -Pain management per primary care team Chronic: HTN - stable Sleep apnea - Home CPAP HLD Overactive bladder Anxiety - stable Depression - stable Plan: SW/CM for discharge planning-- OK for DC home today from Hospitalist standpoint ; no medical concerns- stable. GI prophylaxis Home medications as indicated Other orders as listed above Routine AM labs She is a full code. Her PCP is Dr. Chu at [facility] in [place].
--- NOTE | 2017-08-09 13:39 | PCM.SURGPN ---
- General Info Date of Service: 08/09/17 POD#: 1 Functional Status: Reports: Pain Controlled, Tolerating Diet, Ambulating, Urinating, Incentive Spirometry. Denies: Other - Review of Systems Musculoskeletal: Reports: Other (The pt has met inpatient therapy goals.) - Patient Data Vitals - Most Recent: Last Vital Signs Temp 97.9 F 08/09/17 11:37 Pulse 73 08/09/17 11:37 Resp 16 08/09/17 12:00 BP 118/75 08/09/17 11:37 Pulse Ox 98 08/09/17 12:00 Weight - Most Recent: 197 lb 0.012 oz I&O - Last 24 Hours: Intake & Output 08/08/17 08/09/17 08/09/17 22:59 06:59 14:59 Intake Total 570 850 180 Output Total 75 1100 Balance 495 -250 180 Lab Results Last 24 Hrs: Laboratory Results - last 24 hr 08/09/17 08/09/17 Range/Units 06:25 06:25 WBC 8.04 (3.98-10.04) K/mm3 RBC 3.56 L (3.98-5.22) M/mm3 Hgb 9.8 L (11.2-15.7) gm/L Hct 31.2 L (34.1-44.9) % MCV 87.6 (79.4-94.8) fl MCH 27.5 (25.6-32.2) pg MCHC 31.4 L (32.2-35.5) g/dl RDW Std Deviation 44.1 (36.4-46.3) fL Plt Count 251 (182-369) K/mm3 MPV 8.5 L (9.4-12.3) fl Sodium 145 (136-145) mEq/L Potassium 3.9 (3.5-5.1) mEq/L Chloride 108 H (98-107) mEq/L Carbon Dioxide 29 (21-32) mEq/L Anion Gap 11.9 (5-15) BUN 17 (7-18) mg/dL Creatinine 0.7 (0.55-1.02) mg/dL Est Cr Clr Drug Dosing 68.93 mL/min Estimated GFR (MDRD) > 60 (>60) mL/min BUN/Creatinine Ratio 24.3 H (14-18) Glucose 106 (80-115) mg/dL Calcium 8.7 (8.5-10.1) mg/dL Total Bilirubin 0.3 (0.2-1.0) mg/dL AST 18 (15-37) U/L ALT 18 (14-59) U/L Alkaline Phosphatase 68 (46-116) U/L Total Protein 5.6 L (6.4-8.2) g/dl Albumin 2.6 L (3.4-5.0) g/dl Globulin 3.0 gm/dL Albumin/Globulin Ratio 0.9 L (1-2) Med Orders - Current: Current Medications Aspirin (Ecotrin) 325 mg PO BID [facility] Last Admin: 08/09/17 09:25 Dose: 325 mg Bisacodyl (Dulcolax) 5 mg PO DAILY PRN PRN Reason: Constipation Cyclobenzaprine HCl (Flexeril) 10 mg PO TID PRN PRN Reason: Spasms Last Admin: 08/09/17 06:54 Dose: 10 mg Docusate Sodium (Colace) 100 mg PO BID PRN PRN Reason: Constipation Famotidine (Pepcid) 20 mg PO Q12H [facility] Last Admin: 08/09/17 09:26 Dose: 20 mg Furosemide (Lasix) 20 mg PO BIDDIURETIC [facility] Last Admin: 08/09/17 06:54 Dose: 20 mg Lisinopril (Prinivil) 5 mg PO DAILY [facility] Last Admin: 08/09/17 09:25 Dose: 5 mg Magnesium Hydroxide (Milk Of Magnesia) 30 ml PO BID PRN PRN Reason: Constipation Miscellaneous Information (Remove Patch) 0 ea TRDERM ONETIME ONE Stop: 08/11/17 10:01 Morphine Sulfate (Morphine) 2 mg IVPUSH Q2H PRN PRN Reason: Breakthrough Pain Naloxone HCl (Narcan) 0.1 mg IVPUSH Q5M PRN PRN Reason: Oversedation Ondansetron HCl (Zofran) 4 mg IVPUSH Q6H PRN PRN Reason: Nausea/Vomiting Oxycodone/Acetaminophen (Percocet 325-5 Mg) 1 - 2 tab PO Q4H PRN PRN Reason: Pain Last Admin: 08/09/17 11:54 Dose: 2 tab Biotin 5 Mg 0 each PO BID [facility] Last Admin: 08/09/17 11:07 Dose: Not Given Saccharomyces Boulardii (Florastor) 250 mg PO DAILY [facility] Last Admin: 08/09/17 09:27 Dose: 250 mg Senna (Senna) 8.6 mg PO BID PRN PRN Reason: Constipation Sodium Chloride (Saline Flush) 10 ml FLUSH ASDIRECTED PRN PRN Reason: Keep Vein Open Discontinued Medications Bupivacaine HCl (Marcaine 0.25%) Confirm Administered Dose 30 ml .ROUTE .STK- MED ONE Stop: 08/08/17 09:44 Last Admin: 08/08/17 13:29 Dose: 30 ml Cefazolin Sodium (Ancef) Confirm Administered Dose 2 gm .ROUTE .STK-MED ONE Stop: 08/08/17 09:44 Last Admin: 08/08/17 13:23 Dose: 2 gm Cefazolin Sodium (Ancef) Confirm Administered Dose 2 gm .ROUTE .STK-MED ONE Stop: 08/08/17 13:31 Morphine Sulfate 8 mg/Epinephrine HCl 0.3 mg/Cefuroxime Sodium 750 mg/Ketorolac Tromethamine 30 mg/Sodium Chloride 27.9 ml 0 mg .XX ONETIME ONE Stop: 08/08/17 11:31 Last Admin: 08/08/17 20:17 Dose: Not Given Dexamethasone (Dexamethasone) Confirm Administered Dose 20 mg .ROUTE .STK-MED ONE Stop: 08/08/17 11:25 Diphenhydramine HCl (Benadryl) Confirm Administered Dose 50 mg .ROUTE .STK-MED ONE Stop: 08/08/17 11:25 Ephedrine Sulfate (Ephedrine Sulfate) Confirm Administered Dose 50 mg .ROUTE .STK-MED ONE Stop: 08/08/17 11:37 Ephedrine Sulfate (Ephedrine Sulfate) 5 mg IVPUSH ASDIRECTED PRN PRN Reason: Hypotension Stop: 08/08/17 14:30 Fentanyl (Sublimaze) Confirm Administered Dose 100 mcg .ROUTE .STK-MED ONE Stop: 08/08/17 11:25 Fentanyl (Sublimaze) 50 mcg IVPUSH Q5M PRN PRN Reason: Pain Stop: 08/08/17 14:30 Furosemide (Lasix) 20 mg PO BID [facility] Last Admin: 08/08/17 20:59 Dose: 20 mg Glycopyrrolate () Confirm Administered Dose 1 mg .ROUTE .STK-MED ONE Stop: 08/08/17 12:34 Lactated Ringer's (Ringers, Lactated) 1,000 mls @ 125 mls/hr IV ASDIRECTED [facility] Last Admin: 08/08/17 15:19 Dose: 125 mls/hr Cefazolin Sodium/Dextrose 2 gm (/ Premix) 50 mls @ 100 mls/hr IV Q8H [facility] Stop: 08/09/17 11:29 Last Admin: 08/09/17 11:08 Dose: 100 mls/hr Lactated Ringer's (Ringers, Lactated) Confirm Administered Dose 1,000 mls @ as directed .ROUTE .STK-MED ONE Stop: 08/08/17 11:00 Lidocaine HCl (Xylocaine-Mpf 1%) Confirm Administered Dose 8 mls @ as directed .ROUTE .STK-MED ONE Stop: 08/08/17 11:25 Lactated Ringer's (Ringers, Lactated) Confirm Administered Dose 1,000 mls @ as directed .ROUTE .STK-MED ONE Stop: 08/08/17 11:56 Lactated Ringer's (Ringers, Lactated) Confirm Administered Dose 1,000 mls @ as directed .ROUTE .STK-MED ONE Stop: 08/08/17 12:10 Phenylephrine HCl 1 mg/ Sodium (Chloride) 10.1 mls @ 1 mls/sec IV TITRATE [facility] PRN Reason: Protocol Stop: 08/08/17 14:30 Iodine (Iodine 2% Mild Tincture) Confirm Administered Dose 30 ml .ROUTE .STK- MED ONE Stop: 08/08/17 09:44 Last Admin: 08/08/17 13:21 Dose: 18 ml Ketamine HCl (Ketalar) Confirm Administered Dose 500 mg .ROUTE .STK-MED ONE Stop: 08/08/17 11:35 Lidocaine/Sodium Bicarbonate (Buffered Lidocaine 1% In Ns 8.4%) 0.25 ml IV ONETIME PRN PRN Reason: Prior to IV Start Stop: 08/08/17 18:00 Last Admin: 08/08/17 10:12 Dose: 0.25 ml Midazolam HCl (Versed 1 Mg/Ml) Confirm Administered Dose 2 mg .ROUTE .STK-MED ONE Stop: 08/08/17 11:24 Midazolam HCl (Versed 1 Mg/Ml) 2 mg IVPUSH ONETIME PRN PRN Reason: Sedation Stop: 08/08/17 14:30 Morphine Sulfate (Duramorph Pf) Confirm Administered Dose 10 mg .ROUTE .STK-MED ONE Stop: 08/08/17 11:32 Ondansetron HCl (Zofran) Confirm Administered Dose 4 mg .ROUTE .STK-MED ONE Stop: 08/08/17 11:25 Ondansetron HCl (Zofran) 4 mg IVPUSH ONETIME PRN PRN Reason: Nausea/Vomiting Stop: 08/08/17 14:30 Phenylephrine HCl (Peterson-Synephrine) Confirm Administered Dose 10 mg .ROUTE .STK- MED ONE Stop: 08/08/17 10:34 Phenylephrine HCl (Peterson-Synephrine) Confirm Administered Dose 10 mg .ROUTE .STK- MED ONE Stop: 08/08/17 11:37 Propofol (Diprivan 20 Ml) Confirm Administered Dose 400 mg .ROUTE .STK-MED ONE Stop: 08/08/17 11:25 Propofol (Diprivan 20 Ml) Confirm Administered Dose 200 mg .ROUTE .STK-MED ONE Stop: 08/08/17 13:10 Propofol (Diprivan 20 Ml) Confirm Administered Dose 200 mg .ROUTE .STK-MED ONE Stop: 08/08/17 13:10 Saccharomyces Boulardii (Florastor) 2,510 mg PO DAILY [facility] Last Admin: 08/09/17 12:29 Dose: Not Given Scopolamine (Transderm-Scop) 1.5 mg TRDERM ONETIME ONE Stop: 08/08/17 10:16 Last Admin: 08/08/17 10:13 Dose: 1.5 mg Tranexamic Acid (Cyklokapron) Confirm Administered Dose 1,000 mg .ROUTE .STK- MED ONE Stop: 08/08/17 09:44 Last Admin: 08/08/17 13:30 Dose: 1,000 mg Vancomycin HCl (Vancomycin) Confirm Administered Dose 1 gm .ROUTE .STK-MED ONE Stop: 08/08/17 09:44 Last Admin: 08/08/17 13:30 Dose: 1 gm - Exam Wound/Incisions: Dressing Dry and Intact General: Alert, Cooperative, No Acute Distress Lungs: Normal Respiratory Effort Extremities: Other (NVS intact for BLE. Rosa's negative. Right thigh soft.) - Problem List Review Problem List Initiated/Reviewed/Updated: Yes - My Orders Last 24 Hours: Active Orders 24 hr Category Date Time Status Communication Order [RC] QSHIFT Care 08/08/17 17:48 Active Ready for Discharge [RC] PER UNIT ROUTINE Care 08/09/17 11:21 Active Aspirin [Ecotrin] Med 08/09/17 09:00 Active 325 mg PO BID Famotidine [Pepcid] Med 08/08/17 21:00 Active 20 mg PO Q12H Furosemide [Lasix] Med 08/09/17 06:00 Active 20 mg PO BIDDIURETIC Lisinopril [Prinivil] Med 08/09/17 09:00 Active 5 mg PO DAILY Patient's Own Medication [Ptom] Med 08/08/17 21:00 Active 0 each PO BID Remove Patch Med 08/11/17 10:00 Once 0 ea TRDERM ONETIME ONE Saccharomyces Boulardii [Florastor] Med 08/09/17 09:30 Active 250 mg PO DAILY Weight bearing status [OM.PC] Routine Oth 08/08/17 13:27 Ordered Medication Orders Aspirin (Ecotrin) 325 mg PO BID [facility] Last Admin: 08/09/17 09:25 Dose: 325 mg Bisacodyl (Dulcolax) 5 mg PO DAILY PRN PRN Reason: Constipation Cyclobenzaprine HCl (Flexeril) 10 mg PO TID PRN PRN Reason: Spasms Last Admin: 08/09/17 06:54 Dose: 10 mg Docusate Sodium (Colace) 100 mg PO BID PRN PRN Reason: Constipation Famotidine (Pepcid) 20 mg PO Q12H [facility] Last Admin: 08/09/17 09:26 Dose: 20 mg Admin: 08/08/17 20:59 Dose: 20 mg Furosemide (Lasix) 20 mg PO BIDDIURETIC [facility] Last Admin: 08/09/17 06:54 Dose: 20 mg Lisinopril (Prinivil) 5 mg PO DAILY [facility] Last Admin: 08/09/17 09:25 Dose: 5 mg Magnesium Hydroxide (Milk Of Magnesia) 30 ml PO BID PRN PRN Reason: Constipation Miscellaneous Information (Remove Patch) 0 ea TRDERM ONETIME ONE Stop: 08/11/17 10:01 Morphine Sulfate (Morphine) 2 mg IVPUSH Q2H PRN PRN Reason: Breakthrough Pain Naloxone HCl (Narcan) 0.1 mg IVPUSH Q5M PRN PRN Reason: Oversedation Ondansetron HCl (Zofran) 4 mg IVPUSH Q6H PRN PRN Reason: Nausea/Vomiting Oxycodone/Acetaminophen (Percocet 325-5 Mg) 1 - 2 tab PO Q4H PRN PRN Reason: Pain Last Admin: 08/09/17 11:54 Dose: 2 tab Admin: 08/09/17 06:54 Dose: 2 tab Admin: 08/08/17 21:00 Dose: 2 tab Biotin 5 Mg 0 each PO BID [facility] Last Admin: 08/09/17 11:07 Dose: Saccharomyces Boulardii (Florastor) 250 mg PO DAILY [facility] Last Admin: 08/09/17 09:27 Dose: 250 mg Senna (Senna) 8.6 mg PO BID PRN PRN Reason: Constipation Sodium Chloride (Saline Flush) 10 ml FLUSH ASDIRECTED PRN PRN Reason: Keep Vein Open - Assessment Assessment (Free Text/Narrative):: POD#1 - right NIKA - Plan Plan (Free Text/Narrative):: 1. Hgb 9.8 today. 2. 50% WB x 2 wks. 3. Discharge to home today. The pt has met inpatient therapy goals and has been cleared by Hospitalist. 4. 325mg ASA BID. The pt's case was discussed with Dr. Mcduffie today.
[2017-08-09 16:08] VITALS: BP 98/41
--- NOTE | 2017-08-11 08:36 | PCM.DCSUM1 ---
Discharge Summary - Hospital Course Brief History: Natalia is a 62 yo female who underwent right NIKA with Dr. Mcduffie on 08-08-2017. The procedure was completed under spinal anesthesia with MAC. The pt tolerated the procedure well and was admitted to the Medical-Surgical Unit. The pt received Ancef odilia-operatively. She participated in P.T. and O.T. and progressed well. She was 50% weight-bearing through the surgical leg and used a FWW for mobility. The pt's surgical wound was dressed with a Mepilex dressing and remained clean and dry. On POD#1, the pt was started on 325mg ASA BID for VTE prophylaxis. The pt used TEDs and SCDs also. On POD#1, the pt's hemoglobin was 9.8. Medial management was provided by the Hospitalist service and the pt's hospital course was uneventful. On POD#2, the pt was deemed appropriate for discharge to home with her family. - Discharge Data Discharge Date: 08/09/17 Discharge Disposition: Home, Self-Care 01 Condition: Good - Patient Summary/Data Consults: Consultations 08/08/17 07:01 Consult to Physician [CONS] Routine OT Evaluation and Treatment [CONS] Routine 08/08/17 07:04 PT Evaluation and Treatment [CONS] Routine - Patient Instructions Diet: Usual Diet as Tolerated Activity: Apply Ice, As Tolerated, Elevate Extremity, Partial Weight Bearing Activity, Other: 50% weight bearing x 2 wks Driving: Do Not Drive Showering/Bathing: May Shower Wound/Incision Care: Keep Operative Site/Wound Site Clean and Dry, Do NOT Change Dressing Notify Provider of: Fever, Increased Pain, Swelling and Redness, Drainage, Nausea and/or Vomiting Other/Special Instructions: Please get up and moving around every hour while awake. This helps to prevent blood clots. Please take 325mg aspirin twice daily - this also helps to prevent blood clots. The medication is being used for blood clot prevention and not for pain control, so please use the medication twice daily as directed. Please wear the JASEN hose during the day and remove them at night. Please schedule for P.T. Complete the P.T. exercises and stretches that were instructed in the Hospital. Follow the total hip precautions. Please use the pain medication and muscle relaxant as needed. The medication may cause drowsiness and/or constipation. You could use a stool softener like docusate sodium or Colace 100mg twice daily and/or a laxative like polyethylene glycol or Miralax daily for constipation. Contact your primary care provider for further instructions if you are constipated. Please schedule an appointment with your primary care provider for 'routine post -op care'. Use the incentive spirometer often. Please place ice to the hip often. Please elevate the limb to decrease swelling. Keep the Mepilex dressing in place until follow-up. Please call [phone] with questions or concerns. - Discharge Plan Prescriptions/Med Rec: Acetaminophen/oxyCODONE [Percocet 325-5 MG] 1 - 2 tab PO Q6H PRN #60 tablet PRN Reason: Pain Aspirin [Ecotrin] 325 mg PO BID #70 tab.ec Cyclobenzaprine [Flexeril] 10 mg PO Q8H PRN #40 tablet PRN Reason: muscle spasms Home Medications: Home Meds Biotin 5 mg PO BID 08/05/17 [History] Furosemide [Lasix] 20 mg PO BID 08/05/17 [History] L Acidophil/B Lactis/B Longum [Florajen3] 460 mg PO DAILY 08/05/17 [History] Lisinopril 5 mg PO DAILY 08/05/17 [History] Replenex 1 tab PO BID 08/05/17 [History] Acetaminophen/oxyCODONE [Percocet 325-5 MG] 1 - 2 tab PO Q6H PRN #60 tablet [Rx] Aspirin [Ecotrin] 325 mg PO BID #70 tab.ec 08/09/17 [Rx] Cyclobenzaprine [Flexeril] 10 mg PO Q8H PRN #40 tablet 08/09/17 [Rx] Docusate Sodium [Colace] 100 mg PO BID PRN cap 08/09/17 [Rx] Famotidine [Pepcid] 20 mg PO Q12H tablet 08/09/17 [Rx] Patient Handouts: Hip Rehab Exercises-SportsMed, Total Hip Replacement, Easy-to -Read, Sleep Apnea, [id number], Hip Rehabilitation After Surgery, Aspirin, ASA oral tablets, Total Hip Replacement, Care After, [id number] Referrals: Brigitte Moscoso PA-C [Physician Rn Surgery [facility]] - 08/16/17 8:15 am (Please attend your previously scheduled follow-up appointments with Dr. Moscoso. The first one is on August 16 at 0815am. The next appointment is on the following August 23, at 0815am. ) Isaias Chu MD [Physician] - (Please call and schedule a post-op follow-up appointment with your primary care doctor, Dr. Chu, within 1 to 2 weeks. ) - Patient Data Vitals - Most Recent: Last Vital Signs Temp 97.9 F 08/09/17 16:01 Pulse 72 08/09/17 16:01 Resp 14 08/09/17 16:01 BP 98/41 L 08/09/17 16:01 Pulse Ox 94 L 08/09/17 16:01 Weight - Most Recent: 197 lb 0.012 oz Med Orders - Current: Current Medications Discontinued Medications Aspirin (Ecotrin) 325 mg PO BID ALBINA Last Admin: 08/09/17 09:25 Dose: 325 mg Bisacodyl (Dulcolax) 5 mg PO DAILY PRN PRN Reason: Constipation Bupivacaine HCl (Marcaine 0.25%) Confirm Administered Dose 30 ml .ROUTE .STK- MED ONE Stop: 08/08/17 09:44 Last Admin: 08/08/17 13:29 Dose: 30 ml Cefazolin Sodium (Ancef) Confirm Administered Dose 2 gm .ROUTE .STK-MED ONE Stop: 08/08/17 09:44 Last Admin: 08/08/17 13:23 Dose: 2 gm Cefazolin Sodium (Ancef) Confirm Administered Dose 2 gm .ROUTE .STK-MED ONE Stop: 08/08/17 13:31 Morphine Sulfate 8 mg/Epinephrine HCl 0.3 mg/Cefuroxime Sodium 750 mg/Ketorolac Tromethamine 30 mg/Sodium Chloride 27.9 ml 0 mg .XX ONETIME ONE Stop: 08/08/17 11:31 Last Admin: 08/08/17 20:17 Dose: Not Given Cyclobenzaprine HCl (Flexeril) 10 mg PO TID PRN PRN Reason: Spasms Last Admin: 08/09/17 06:54 Dose: 10 mg Dexamethasone (Dexamethasone) Confirm Administered Dose 20 mg .ROUTE .STK-MED ONE Stop: 08/08/17 11:25 Diphenhydramine HCl (Benadryl) Confirm Administered Dose 50 mg .ROUTE .STK-MED ONE Stop: 08/08/17 11:25 Docusate Sodium (Colace) 100 mg PO BID PRN PRN Reason: Constipation Ephedrine Sulfate (Ephedrine Sulfate) Confirm Administered Dose 50 mg .ROUTE .STK-MED ONE Stop: 08/08/17 11:37 Ephedrine Sulfate (Ephedrine Sulfate) 5 mg IVPUSH ASDIRECTED PRN PRN Reason: Hypotension Stop: 08/08/17 14:30 Famotidine (Pepcid) 20 mg PO Q12H [facility] Last Admin: 08/09/17 09:26 Dose: 20 mg Fentanyl (Sublimaze) Confirm Administered Dose 100 mcg .ROUTE .STK-MED ONE Stop: 08/08/17 11:25 Fentanyl (Sublimaze) 50 mcg IVPUSH Q5M PRN PRN Reason: Pain Stop: 08/08/17 14:30 Furosemide (Lasix) 20 mg PO BID [facility] Last Admin: 08/08/17 20:59 Dose: 20 mg Furosemide (Lasix) 20 mg PO BIDDIURETIC [facility] Last Admin: 08/09/17 15:53 Dose: 20 mg Glycopyrrolate () Confirm Administered Dose 1 mg .ROUTE .STK-MED ONE Stop: 08/08/17 12:34 Lactated Ringer's (Ringers, Lactated) 1,000 mls @ 125 mls/hr IV ASDIRECTED [facility] Last Admin: 08/08/17 15:19 Dose: 125 mls/hr Cefazolin Sodium/Dextrose 2 gm (/ Premix) 50 mls @ 100 mls/hr IV Q8H [facility] Stop: 08/09/17 11:29 Last Admin: 08/09/17 11:08 Dose: 100 mls/hr Lactated Ringer's (Ringers, Lactated) Confirm Administered Dose 1,000 mls @ as directed .ROUTE .STK-MED ONE Stop: 08/08/17 11:00 Lidocaine HCl (Xylocaine-Mpf 1%) Confirm Administered Dose 8 mls @ as directed .ROUTE .STK-MED ONE Stop: 08/08/17 11:25 Lactated Ringer's (Ringers, Lactated) Confirm Administered Dose 1,000 mls @ as directed .ROUTE .STK-MED ONE Stop: 08/08/17 11:56 Lactated Ringer's (Ringers, Lactated) Confirm Administered Dose 1,000 mls @ as directed .ROUTE .STK-MED ONE Stop: 08/08/17 12:10 Phenylephrine HCl 1 mg/ Sodium (Chloride) 10.1 mls @ 1 mls/sec IV TITRATE ALBINA PRN Reason: Protocol Stop: 08/08/17 14:30 Iodine (Iodine 2% Mild Tincture) Confirm Administered Dose 30 ml .ROUTE .STK- MED ONE Stop: 08/08/17 09:44 Last Admin: 08/08/17 13:21 Dose: 18 ml Ketamine HCl (Ketalar) Confirm Administered Dose 500 mg .ROUTE .STK-MED ONE Stop: 08/08/17 11:35 Lidocaine/Sodium Bicarbonate (Buffered Lidocaine 1% In Ns 8.4%) 0.25 ml IV ONETIME PRN PRN Reason: Prior to IV Start Stop: 08/08/17 18:00 Last Admin: 08/08/17 10:12 Dose: 0.25 ml Lisinopril (Prinivil) 5 mg PO DAILY [facility] Last Admin: 08/09/17 09:25 Dose: 5 mg Magnesium Hydroxide (Milk Of Magnesia) 30 ml PO BID PRN PRN Reason: Constipation Midazolam HCl (Versed 1 Mg/Ml) Confirm Administered Dose 2 mg .ROUTE .STK-MED ONE Stop: 08/08/17 11:24 Midazolam HCl (Versed 1 Mg/Ml) 2 mg IVPUSH ONETIME PRN PRN Reason: Sedation Stop: 08/08/17 14:30 Miscellaneous Information (Remove Patch) 0 ea TRDERM ONETIME ONE Stop: 08/11/17 10:01 Morphine Sulfate (Morphine) 2 mg IVPUSH Q2H PRN PRN Reason: Breakthrough Pain Morphine Sulfate (Duramorph Pf) Confirm Administered Dose 10 mg .ROUTE .STK-MED ONE Stop: 08/08/17 11:32 Naloxone HCl (Narcan) 0.1 mg IVPUSH Q5M PRN PRN Reason: Oversedation Ondansetron HCl (Zofran) 4 mg IVPUSH Q6H PRN PRN Reason: Nausea/Vomiting Ondansetron HCl (Zofran) Confirm Administered Dose 4 mg .ROUTE .STK-MED ONE Stop: 08/08/17 11:25 Ondansetron HCl (Zofran) 4 mg IVPUSH ONETIME PRN PRN Reason: Nausea/Vomiting Stop: 08/08/17 14:30 Oxycodone/Acetaminophen (Percocet 325-5 Mg) 1 - 2 tab PO Q4H PRN PRN Reason: Pain Last Admin: 08/09/17 16:19 Dose: 2 tab Biotin 5 Mg 0 each PO BID [facility] Last Admin: 08/09/17 11:07 Dose: Not Given Phenylephrine HCl (Peterson-Synephrine) Confirm Administered Dose 10 mg .ROUTE .STK- MED ONE Stop: 08/08/17 10:34 Phenylephrine HCl (Peterson-Synephrine) Confirm Administered Dose 10 mg .ROUTE .STK- MED ONE Stop: 08/08/17 11:37 Propofol (Diprivan 20 Ml) Confirm Administered Dose 400 mg .ROUTE .STK-MED ONE Stop: 08/08/17 11:25 Propofol (Diprivan 20 Ml) Confirm Administered Dose 200 mg .ROUTE .STK-MED ONE Stop: 08/08/17 13:10 Propofol (Diprivan 20 Ml) Confirm Administered Dose 200 mg .ROUTE .STK-MED ONE Stop: 08/08/17 13:10 Saccharomyces Boulardii (Florastor) 2,510 mg PO DAILY [facility] Last Admin: 08/09/17 12:29 Dose: Not Given Saccharomyces Boulardii (Florastor) 250 mg PO DAILY [facility] Last Admin: 08/09/17 09:27 Dose: 250 mg Scopolamine (Transderm-Scop) 1.5 mg TRDERM ONETIME ONE Stop: 08/08/17 10:16 Last Admin: 08/08/17 10:13 Dose: 1.5 mg Senna (Senna) 8.6 mg PO BID PRN PRN Reason: Constipation Sodium Chloride (Saline Flush) 10 ml FLUSH ASDIRECTED PRN PRN Reason: Keep Vein Open Tranexamic Acid (Cyklokapron) Confirm Administered Dose 1,000 mg .ROUTE .STK- MED ONE Stop: 08/08/17 09:44 Last Admin: 08/08/17 13:30 Dose: 1,000 mg Vancomycin HCl (Vancomycin) Confirm Administered Dose 1 gm .ROUTE .STK-MED ONE Stop: 08/08/17 09:44 Last Admin: 08/08/17 13:30 Dose: 1 gm *Q Meaningful Use (DIS) - VTE *Q VTE Criteria *Q: - Stroke *Q Stroke Criteria *Q: - AMI *Q AMI Criteria *Q:
--- NOTE | 2017-08-16 11:50 | PCM.OPNOTE ---
- General Post-Op/Procedure Note Date of Surgery/Procedure: 08/08/17 Operative Procedure(s): right total hip arthroplasty Pre Op Diagnosis: right hip osteoarthrosis Post-Op Diagnosis: Same Anesthesia Technique: Local, MAC, Spinal Primary Surgeon: Kash Mcduffie Anesthesia Provider: Vanesa Alfaro Sheet Rock Taper Helper: Brigitte Moscoso Sheet Rock Taper Helper: Radha Varela EBVladislav in mLs: 500 Complications: None Condition: Good
--- NOTE | 2017-08-16 15:12 | OR ---
DATE OF OPERATION: 08/08/2017 SURGEON: Kash Mcduffie MD OPERATION PERFORMED: Right total hip arthroplasty. PREOPERATIVE DIAGNOSIS: Right hip osteoarthrosis. POSTOPERATIVE DIAGNOSIS: Right hip osteoarthrosis. ANESTHESIA: Local MAC with spinal. ANESTHESIA PROVIDER: Keerthi Toro. IMPORT COORDINATOR: Brigitte Moscoso PA-C, and Radha Varela LPN. ESTIMATED BLOOD LOSS: 250 mL. COMPLICATIONS: None. CONDITION: Stable. IMPLANTS: 1. Barre size 54 mm Tritanium acetabular cup. 2. Barre 28 x 48 MDM components. 3. Barre 42 MDM liner. 4. Chasidy size 5 Accolade II stem. 5. Chasidy 28+ 8 mm ceramic head. 6. Barre two 6.5 mm acetabular screws. DESCRIPTION OF PROCEDURE: The patient was identified in the preop holding area. Proper site was marked and identified by the surgeon. The patient was taken back to the operating theater, where after adequate anesthesia, the patient was placed in a left lateral decubitus position. All bony prominences were well padded. Axillary roll was placed. Pegs were then placed and well padded. The patient's right hip was then sterilely prepped and draped in the usual sterile fashion. OR time- out was performed. The patient received 2 g IV Ancef. At this time, standard posterior incision was made centered over the greater trochanter. This was taken down to the IT band and gluteal fascia, which was incised along the incisional length. Charnley retractor was then placed. Short external rotators were then identified and takedown of the short external rotators and capsule was done all the way to the level of lesser trochanter. At this time, the hip was then dislocated. Neck cut guide was then placed. The neck cut was then completed. The anterior and posterior acetabular retractors then placed, and attention was turned to the acetabulum, remaining labrum was removed along with the pulvinar. The patient was noted to have significant wear especially from the medial lateral perspective and a very thin anterior wall. At this time, starting with a size 44 reamer, I was able to ream up to a 54. At this point, the anterior wall was becoming very thin. The patient was noted to have severe osteoporotic type bone. At this time, 54 trial did have fit, although was not completely tight, but there was no significant loosening either. At this time, a 54 mm Tritanium acetabular cup was then impacted into place. I did have good fixed two-finger fixation in all directions, but at this time, two 6.5 mm fully threaded screws were placed in the superior posterior position of the acetabulum and was found to have adequate purchase. At this time, the MDM liner was impacted into place. Attention was turned to the femur. The femoral elevator was placed. Box chisel was used out laterally and starter awl was placed down the canal. Starting with the 0 broach, I was able to broach up to a size 5 which was found to be rotationally and vertically stable. At this time, a +0 head was placed and hip was reduced. It was noted to be short at this time, it was stable throughout range of motion. The hip was then dislocated. A +8 was trialed. A +8 was found have adequate sikh of leg lengths and hip was stable throughout range of motion. At this time, size 5 Accolade II stem was impacted into place. The MDM components with a 28+ 8 and 42 mm head were then constructed on the back table. These were then impacted onto the stem and the hip was reduced. It was found to be stable throughout range of motion. #5 Ethibond was used for closure of the short external rotators and capsule. 1 L dilute Betadine solution was irrigated through the hip along 3 L irrigation with Ancef pulse lavage irrigation. Periarticular injection was completed and #2 suture was used for closure of the IT band and gluteal fascia, 2-0 Vicryl was used subcutaneously, and Prineo was used for the skin. The patient tolerated the procedure well and was sent to PACU in stable condition. She will be 50% weightbearing after surgery secondary to the severe osteoporotic bone. MMNIEVES /[id number]
== END 2017-08-09 17:05 | disposition home or self-care (01) | DRG 470 ==
LOC: JD.MS 09:15
PROVIDERS: ADMIT Orthopaedic Surgery; ATTEND Orthopaedic Surgery
PROC: 0SR9029 Replacement of Right Hip Joint with Metal on Polyethylene Synthetic Substitute, Cemented, Open Approach (ICD-10-PCS; principal; 2017-08-08)
DX: M16.11 Unilateral primary osteoarthritis, right hip (principal); N32.81 Overactive bladder; E78.5 Hyperlipidemia, unspecified; H54.7 Unspecified visual loss; I10 Essential (primary) hypertension; G47.33 Obstructive sleep apnea (adult) (pediatric); F32.9 Major depressive disorder, single episode, unspecified; F41.9 Anxiety disorder, unspecified; Z91.040 Latex allergy status; Z79.899 Other long term (current) drug therapy
CPT/HCPCS: 01214; 36415; 73501-26-RT; 73501-RT; 80053; 85027; 86850; 86900; 86901; 87641; 94762; 97110-GP; 97116-GP; 97162-GP; 97166-GO; 97535-GO; A9270-GY; C1713; C1776; J0171; J0690; J0697; J1100; J1200; J1885; J2250; J2270; J2370; J2405; J2704; J3010; J3370; J3490; J7120

== ENCOUNTER 2019-03-07 15:56 | Emergency (ER) | payer OTHER ==
[2019-03-07 16:03] VITALS: BP 134/72
[2019-03-07] MEDS ORDERED: Alum Hydrox/Mag Hydrox/Simeth 30 ML, Lidocaine 2% 15 ML PO ONE ×2 (16:26)
--- NOTE | 2019-03-07 17:23 | EDM.PDOC ---
ED HPI GENERAL MEDICAL PROBLEM - General Chief Complaint: ENT Problem Stated Complaint: THROAT COMPLAINT Time Seen by Provider: 03/07/19 16:30 Source of Information: Reports: Patient History Limitations: Reports: No Limitations - History of Present Illness INITIAL COMMENTS - FREE TEXT/NARRATIVE: 63-year-old male presents for evaluation and treatment. Patient reports that she took her morning medication. She states that a pill is caught in her throat and she has been unable to clear it. She has been able to swallow her secretions, eating and drinking like normal. States never had anything like this before. She has tried drinking hot and cold water, eating lunch but has been unable to clear this. Other than odynophagia she denies any shortness of breath, trouble breathing, chest pain, nausea, vomiting, hematemesis. She states that this was not an aspirin or any type of anticoagulant. She's never had an EGD done before. Primary care provider is Cami Coon. - Related Data Allergies Allergy/AdvReac Type Severity Reaction Status Date / Time latex Allergy Rash Verified 03/07/19 16:03 Home Meds: Home Meds Biotin 5 mg PO BID 08/05/17 [History] Furosemide [Lasix] 20 mg PO BID 08/05/17 [History] L Acidophil/B Lactis/B Longum [Florajen3] 460 mg PO DAILY 08/05/17 [History] Lisinopril 5 mg PO DAILY 08/05/17 [History] Replenex 1 tab PO BID 08/05/17 [History] Calcium Phosphate Trib/Vit D3 [Calcium + Vitamin D3 Gummies] 1 tab PO DAILY [History] Cholecalciferol (Vitamin D3) [Vitamin D] 5,000 unit PO DAILY 03/07/19 [History] Ezetimibe/Simvastatin [Ezetimibe-Simvastatin 10-10 mg] 0 mg PO DAILY 03/07/19 [ History] Multivitamin [Gummi Bear Multivitamin] 1 tab PO DAILY 03/07/19 [History] Sucralfate [Carafate] 1 gm PO TID PRN #60 ml 03/07/19 [Rx] Past Medical History HEENT History: Reports: Impaired Vision, Other (See Below) Other HEENT History: glasses Cardiovascular History: Reports: High Cholesterol, Hypertension Respiratory History: Reports: Sleep Apnea Gastrointestinal History: Reports: None Genitourinary History: Reports: Other (See Below) Other Genitourinary History: overactive bladder SHIP FITTER History: Reports: None Other SHIP FITTER History: Pt. noted a couple of days ago a pea sized lump on left breast at approx. 10 o'clock position, is moveable and nontender. Will note further. Musculoskeletal History: Reports: Osteoarthritis, Other (See Below) Other Musculoskeletal History: padron's cyst right knee Neurological History: Reports: None Other Neuro History: states had a concussion 4-5 years ago Psychiatric History: Reports: Anxiety, Depression Endocrine/Metabolic History: Reports: None Hematologic History: Reports: None Immunologic History: Reports: None Oncologic (Cancer) History: Reports: None Dermatologic History: Reports: None - Past Surgical History Cardiovascular Surgical History: Reports: None Respiratory Surgical History: Reports: None Female Surgical History: Reports: Hysterectomy, Tubal Ligation Other Female Surgeries/Procedures: Bladder Repairs x2 Musculoskeletal Surgical History: Reports: Carpal Tunnel, Hip Replacement Social & Family History - Family History Cardiac: Reports: Heart Failure : Reports: UTI, Recurrent OBGYN: Reports: None Musculoskeletal: Reports: Arthritis Neurological: Reports: Dementia, Parkinson's Endocrine/Metabolic: Reports: None Oncologic: Reports: Breast - Tobacco Use Smoking Status *Q: Never Smoker - Caffeine Use Caffeine Use: Reports: Coffee Caffeine Use Comment: 4 cups of coffee today - Recreational Drug Use Recreational Drug Use: No ED ROS ENT - Review of Systems Review Of Systems: See Below HEENT: Reports: Other (Reports odynophagia). Denies: Throat Pain Respiratory: Denies: Shortness of Breath, Cough, Sputum, Hemoptysis Cardiovascular: Denies: Chest Pain GI/Abdominal: Denies: Abdominal Pain, Nausea, Vomiting Neurological: Denies: Dizziness ED EXAM, ENT - Physical Exam Exam: See Below Exam Limited By: No Limitations General Appearance: Alert, WD/WN, No Apparent Distress Mouth/Throat: Normal Inspection, Normal Gums, Normal Lips, Normal Oropharynx Neck: Normal Inspection Respiratory/Chest: No Respiratory Distress, Lungs Clear, Normal Breath Sounds Cardiovascular: Normal Peripheral Pulses, Regular Rate, Rhythm, No Murmur GI/Abdominal: Normal Bowel Sounds, Soft, Non-Tender Neurological: Alert, Oriented, Normal Cognition Psychiatric: Normal Affect, Normal Mood Skin: Warm, Dry, Normal Color Course - Vital Signs Last Recorded V/S: Last Vital Signs Temp 98.3 F 03/07/19 16:01 Pulse 75 03/07/19 16:01 Resp 16 03/07/19 16:01 BP 134/72 03/07/19 16:01 Pulse Ox 96 03/07/19 16:01 - Orders/Labs/Meds Meds: Medications Discontinued Medications Generic Name Dose Route Start Last Admin Trade Name Freq PRN Reason Stop Dose Admin Al Hydroxide/Mg Hydroxide 30 0 ml 03/07/19 16:26 03/07/19 16:34 ml/ Lidocaine HCl 15 ml PO 03/07/19 16:27 45 ml ONETIME ONE Administration - Re-Assessments/Exams Free Text/Narrative Re-Assessment/Exam: 03/07/19 17:25 Discussed the case with Dr. Rosenberg. He recommended a GI cocktail or Carafate. Did not feel that ativan and glucagon would be beneficial in this situation. I checked and the patient after giving her GI cocktail she reports a minor improvement. I will discharge her home with some Carafate and instructed to follow-up with her primary care provider for symptoms persist. Discharge instructions as documented. Departure - Departure Time of Disposition: 17:30 Disposition: Home, Self-Care 01 Condition: Fair Clinical Impression: Pill esophagitis - Discharge Information *PRESCRIPTION DRUG MONITORING PROGRAM REVIEWED*: No *COPY OF PRESCRIPTION DRUG MONITORING REPORT IN PATIENT MAURA: No Prescriptions: Sucralfate [Carafate] 1 gm PO TID PRN #60 ml PRN Reason: Pain Instructions: Esophagitis Referrals: Cami Coon MD [Primary Care Provider] - Forms: ED Department Discharge Additional Instructions: Take the Carafate as prescribed 10mls or 1 gram PO tid prn odynophagia. Follow-up with PCP Tuesday afternoon if not better. This should be markedly improved if not resolved y Continue to drink as normal. Recommend soft foods such as mashed potatoes, jello , pudding, etc while esophagitis heals. Please return to the ER should your symptoms change or worsen.
== END 2019-03-07 18:10 | disposition home or self-care (01) ==
LOC: JD.ED 15:56
DX: K20.9 Esophagitis, unspecified (principal); E78.00 Pure hypercholesterolemia, unspecified; I10 Essential (primary) hypertension; F41.9 Anxiety disorder, unspecified; F32.9 Major depressive disorder, single episode, unspecified; Z91.040 Latex allergy status; Z79.899 Other long term (current) drug therapy
CPT/HCPCS: 99282; A9270

== ENCOUNTER 2023-07-21 07:05 | Day surgery (SDC) | payer OTHER ==
[~2023-07-21 07:05] MED LIST changes: +Acetaminophen 325 MG Tab PO ONE; -Bisacodyl 5 MG Tab PO PRN; -Cyclobenzaprine 10 MG Tab PO PRN; -Docusate Sodium 100 MG Cap PO PRN; +Lactated Ringers 1,000 ML IV SCH; -Lidocaine 1%/Sod Bicarbonate in NS 8.4% 1 ML Syringe IV PRN; -Magnesium Hydroxide 400 MG/5 ML Susp 30 ML Cup PO PRN; -Morphine 2 MG/ML Syringe IVPUSH PRN; +Morphine 8 MG, EPINEPHrine 0.3 MG, Cefuroxime 750 MG, Ketorolac 30 MG, Sodium Chloride ... PRN; -Naloxone 0.4 MG/ML SDV IVPUSH PRN; -Ondansetron 4 MG/2 ML SDV IVPUSH PRN; +Pregabalin 25 MG Cap PO ONE; -Sennosides 8.6 MG Tab PO PRN; +Sodium Chloride 0.9% 10 ML Syringe FLUSH SCH; +oxyCODONE ER 10 MG TAB.ER PO ONE
[2023-07-21] MEDS ORDERED: Vancomycin 1 GM SDV ONE (07:36)
[2023-07-21] MEDS ORDERED: Tranexamic Acid 1,000 MG/10 ML Vial ONE (07:36)
[2023-07-21] MEDS ORDERED: Midazolam 1 MG/ML 2 ML SDV ONE (08:22)
[2023-07-21] MEDS ORDERED: Propofol 200 MG/20 ML SDV ONE ×2 (08:31→09:35)
[2023-07-21] MEDS ORDERED: ceFAZolin 2 GM Vial ONE (08:47)
[2023-07-21] MEDS ORDERED: Ondansetron 4 MG/2 ML SDV IVPUSH PRN (10:08)
[2023-07-21] MEDS ORDERED: fentaNYL 100 MCG/2 ML SDV IVPUSH PRN (10:08)
[2023-07-21] MEDS ORDERED: HYDROmorphone 0.5 MG/0.5 ML Syringe IVPUSH PRN (10:08)
[2023-07-21] MEDS ORDERED: Cyclobenzaprine 10 MG Tab PO PRN (10:13)
[2023-07-21] MEDS ORDERED: Acetaminophen/HYDROcodone 325-5 MG Tab PO PRN ×2 (10:13→10:19)
[2023-07-21 14:32] VITALS: BP 122/56; PULSE 70
== END 2023-07-21 15:25 | disposition home or self-care (01) ==
LOC: JD.SDS 07:05
PROVIDERS: ATTEND Orthopaedic Surgery
DX: M16.12 Unilateral primary osteoarthritis, left hip (principal); I10 Essential (primary) hypertension; G47.33 Obstructive sleep apnea (adult) (pediatric); D68.51 Activated protein C resistance; E66.01 Morbid (severe) obesity due to excess calories; Z68.41 Body mass index [BMI] 40.0-44.9, adult; E78.00 Pure hypercholesterolemia, unspecified; Z98.51 Tubal ligation status; Z90.710 Acquired absence of both cervix and uterus; Z79.82 Long term (current) use of aspirin; Z79.899 Other long term (current) drug therapy; Z91.040 Latex allergy status
CPT/HCPCS: 27130; 36415; 73501; 86850; 86900; 86901; 97110; 97116; 97161; A9270; C1713; C1776; J0171; J0690; J0697; J1885; J2250; J2270; J2704; J3370; J7030; J7120; 01214; J3490

== ENCOUNTER 2024-07-19 01:20 | Emergency (ER) | payer OTHER ==
[2024-07-19] MEDS ORDERED: Sodium Chloride 0.9% 10 ML Syringe FLUSH PRN (01:41)
[2024-07-19 01:50] LABS: BASOPHILS PERCENT AUTO 0.6 % (0.0-1.0); EOSINOPHILS ABSOLUTE AUTO 0.1 K/mm3 (0.0-0.4); EOSINOPHILS PERCENT AUTO 2.1 % (0.0-6.0); HEMATOCRIT 38.8 % (37.0-47.0); HEMOGLOBIN 12.5 gm/dl (12.0-16.0); IMMATURE GRAN ABSOLUTE AUTO 0.01 K/mm3 (0.00-0.05); IMMATURE GRAN PERCENT AUTO 0.2 % (0.0-0.4); LYMPHOCYTES ABSOLUTE AUTO 0.8 K/mm3 (1.0-4.8); LYMPHOCYTES PERCENT AUTO 11.6 % (24.0-44.0); MEAN CORPUSCULAR HEMOGLOBIN 27.5 pg (28.0-32.0); MEAN CORPUSCULAR HGB CONC 32.2 g/dl (32.0-36.0); MEAN CORPUSCULAR VOLUME 85.3 fl (83.0-99.0); MEAN PLATELET VOLUME 8.2 fl (9.4-12.3); MONOCYTES ABSOLUTE AUTO 0.5 K/mm3 (0.0-0.8); NEUTROPHILS ABSOLUTE AUTO 5.2 K/mm3 (1.8-7.7); NEUTROPHILS PERCENT AUTO 78.5 % (41.0-71.0); PLATELET COUNT,PLT 209 K/mm3 (150-400); RED BLOOD CELL COUNT 4.55 M/mm3 (4.10-5.30); WHITE BLOOD CELL COUNT,WBC 6.56 K/mm3 (3.9-11.3)
[2024-07-19 01:53] VITALS: BP 165/105; PULSE 77
[2024-07-19 02:16] LABS: A/G RATIO 0.9 (1-2); ALBUMIN 3.5 g/dl (3.4-5.0); ANION GAP 11.9 (5-15); BILIRUBIN TOTAL 0.7 mg/dL (0.2-1.0); BUN/CREATININE RATIO 21.3 (14-18); CALCIUM 9.4 mg/dL (8.5-10.1); CREATININE 0.8 mg/dL (0.55-1.02); EST CRCL DRUG DOSING (CG) 57.31 mL/min; POTASSIUM,K 3.9 mEq/L (3.5-5.1); PROTEIN TOTAL,TP 7.5 g/dl (6.4-8.2)
[2024-07-19 02:46] LABS: APPEARANCE,URINE CLOUDY (Clear); BILIRUBIN,URINE NEGATIVE (Negative); COLOR,URINE YELLOW (Yellow); GLUCOSE,URINE NEGATIVE (Negative); KETONES,URINE NEGATIVE (Negative); LEUKOCYTE ESTERASE,URINE 3+ (Negative); NITRITE,URINE POSITIVE (Negative); OCCULT BLOOD,URINE 2+ (Negative); PH,URINE 6.5 (5.0-8.0); PROTEIN,URINE 1+ (Negative); UROBILINOGEN,URINE 0.2 (0.2-1.0)
[2024-07-19 03:07] LABS: WBC,URINE TOO NUMEROUS TO CNT /hpf (0-5)
[2024-07-19 03:08] LABS: BACTERIA,URINE MODERATE /hpf (FEW); MUCUS,URINE FEW /hpf (FEW)
[2024-07-19] MEDS: Cefdinir 300 MG Cap PO ONE (04:03)
== END 2024-07-19 04:15 | disposition home or self-care (01) ==
LOC: JD.ED 01:20
DX: N39.0 Urinary tract infection, site not specified (principal); I10 Essential (primary) hypertension; E78.00 Pure hypercholesterolemia, unspecified; Z90.710 Acquired absence of both cervix and uterus; Z79.899 Other long term (current) drug therapy; Z79.01 Long term (current) use of anticoagulants; Z91.040 Latex allergy status
CPT/HCPCS: 36415; 80053; 81001; 85025; 87086; 87088; 87186; 99283; A9270-GY

== ENCOUNTER 2025-08-15 07:00 | Day surgery (SDC) | payer OTHER ==
[~2025-08-15 07:00] MED LIST changes: -Acetaminophen 325 MG Tab PO ONE; -Lactated Ringers 1,000 ML IV SCH; +Midazolam 1 MG/ML 2 ML SDV ONE; -Morphine 8 MG, EPINEPHrine 0.3 MG, Cefuroxime 750 MG, Ketorolac 30 MG, Sodium Chloride ... PRN; -Pregabalin 25 MG Cap PO ONE; +Ropivacaine 0.5% 5 MG/ML 30 ML SDV ONE; +fentaNYL 100 MCG/2 ML SDV ONE; -oxyCODONE ER 10 MG TAB.ER PO ONE; +propofoL 500 MG/50 ML 50 ML ONE
[2025-08-15] MEDS: Lactated Ringers 1,000 ML IV SCH (07:25)
[2025-08-15] MEDS: oxyCODONE ER 10 MG TAB.ER PO SCH (08:03)
[2025-08-15] MEDS ORDERED: fentaNYL 100 MCG/2 ML SDV IVPUSH PRN (08:24)
[2025-08-15] MEDS ORDERED: Ondansetron 4 MG/2 ML SDV IVPUSH PRN (08:24)
[2025-08-15] MEDS ORDERED: Lactated Ringers 1,000 ML ONE (08:36)
[2025-08-15] MEDS ORDERED: dexmedeTOMIDine HCl 200 MCG/2 ML SDV ONE (08:52)
[2025-08-15] MEDS ORDERED: Glycopyrrolate 0.2 MG/ML 2 ML SDV ONE (08:55)
[2025-08-15] MEDS: Morphine 8 MG, EPINEPHrine 0.3 MG, Cefuroxime 750 MG, Ketorolac 30 MG, Sodium Chloride ... PRN (08:56)
[2025-08-15] MEDS: Triamcinolone Acetonide 40 MG/ML 1 ML SDV ONE (09:18)
[2025-08-15 12:39] VITALS: BP 174/75; PULSE 65
== END 2025-08-15 14:30 | disposition home or self-care (01) ==
LOC: JD.SDS 07:00
PROVIDERS: ATTEND Orthopaedic Surgery
DX: M17.0 Bilateral primary osteoarthritis of knee (principal); E78.5 Hyperlipidemia, unspecified; I10 Essential (primary) hypertension; I25.10 Atherosclerotic heart disease of native coronary artery without angina pectoris; G47.33 Obstructive sleep apnea (adult) (pediatric); Z79.82 Long term (current) use of aspirin; Z91.040 Latex allergy status; Z79.899 Other long term (current) drug therapy
CPT/HCPCS: 0055T; 20610; 27447; 64447; 73560; 97116; 97161; A9270; C1713; C1776; J0169; J0665; J0690; J0697; J1596; J1885; J2250; J2272; J2704; J2795; J3010; J3301; J3373; J7120